=== PATIENT | female | born 1950 | race Caucasian/White ===

== ENCOUNTER 2019-07-21 09:14 | Emergency (ER) | payer OTHER ==
[~2019-07-21] VITALS: Ht 167.6 cm; Wt 76.2 kg
[2019-07-21] MEDS ORDERED: LOTREL 10-40 M1 EACH (09:27)
[2019-07-21] MEDS ORDERED: LANTUS SOL100 UNIT/1 (09:28)
[2019-07-21] MEDS ORDERED: HUMALOG KW100 UNIT/1 (09:28)
== END 2019-07-21 14:27 | disposition home or self-care (01) ==
LOC: ER 09:14
DX: M79.661 Pain in right lower leg (principal)

== ENCOUNTER 2023-02-01 06:34 | Day surgery (SDC) | payer OTHER ==
[~2023-02-01 06:34] MED LIST: HUMALOG KW100 UNIT/1; LANTUS SOL100 UNIT/1; LOTREL 10-40 M1 EACH
== END 2023-02-01 13:00 | disposition home or self-care (01) ==
LOC: AMB-ENDOS 06:34
PROVIDERS: ATTEND Colon & Rectal Surgery
DX: C18.7 Malignant neoplasm of sigmoid colon (principal); D12.4 Benign neoplasm of descending colon; D12.3 Benign neoplasm of transverse colon; K64.8 Other hemorrhoids; K92.1 Melena; Z20.822 Contact with and (suspected) exposure to COVID-19

== ENCOUNTER 2023-03-31 12:44 | Outpatient (CLI) | payer OTHER | END 2023-03-31 12:45 | disposition home or self-care (01) | LOC: LAB 12:44 | PROVIDERS: ATTEND Colon & Rectal Surgery | DX: C18.7 Malignant neoplasm of sigmoid colon (principal) ==

== ENCOUNTER 2023-04-06 07:09 | Outpatient (CLI) | payer OTHER | END 2023-04-06 07:25 | disposition home or self-care (01) | LOC: TOM 07:09 | PROVIDERS: ATTEND Colon & Rectal Surgery | DX: C18.7 Malignant neoplasm of sigmoid colon (principal) | CPT/HCPCS: 71260; 74177; Q9965 ==

== ENCOUNTER 2023-04-14 14:47 | Inpatient (IN) | payer OTHER ==
[~2023-04-14] VITALS: Ht 167.6 cm; Wt 76.2 kg
[2023-04-17] MEDS ORDERED: LANTUS (11:05)
[2023-04-17] MEDS ORDERED: LATANOPROST2.5 ML OP (11:06)
[2023-04-17] MEDS ORDERED: AMLODIPINE-OLM1 EAC3 PO (11:06)
[2023-04-17] MEDS ORDERED: SYNJARDY 5-5001 EACH PO (11:06)
[2023-04-21] MEDS ORDERED: AMLODIPINE-BEN1 EAC1 (16:32)
[2023-04-21] MEDS ORDERED: ATORVASTATIN CA40 MG (16:32)
== END 2023-04-24 11:54 | disposition home or self-care (01) | DRG 330 ==
LOC: O/R 04-21 05:52 → SURH 04-21 07:00
PROVIDERS: ADMIT Colon & Rectal Surgery; ATTEND Colon & Rectal Surgery
PROC: 0DBP4ZZ Excision of Rectum, Percutaneous Endoscopic Approach (ICD-10-PCS; 2023-04-21)
PROC: 07BC4ZZ Excision of Pelvis Lymphatic, Percutaneous Endoscopic Approach (ICD-10-PCS; 2023-04-21)
PROC: 0DNW4ZZ Release Peritoneum, Percutaneous Endoscopic Approach (ICD-10-PCS; 2023-04-21)
PROC: 0DJD8ZZ Inspection of Lower Intestinal Tract, Via Natural or Artificial Opening Endoscopic (ICD-10-PCS; 2023-04-21)
PROC: 0DTN4ZZ Resection of Sigmoid Colon, Percutaneous Endoscopic Approach (ICD-10-PCS; principal; 2023-04-21 07:00)
DX: C18.7 Malignant neoplasm of sigmoid colon (principal); K56.690 Other partial intestinal obstruction; R59.0 Localized enlarged lymph nodes; I11.9 Hypertensive heart disease without heart failure; N73.6 Female pelvic peritoneal adhesions (postinfective); N99.4 Postprocedural pelvic peritoneal adhesions; E11.9 Type 2 diabetes mellitus without complications

== ENCOUNTER 2024-04-03 06:30 | Day surgery (SDC) | payer OTHER ==
[~2024-04-03 06:30] MED LIST changes: +AMLODIPINE-BEN1 EAC1; +AMLODIPINE-OLM1 EAC3 PO; +ATORVASTATIN CA40 MG; +LANTUS; +LATANOPROST2.5 ML OP; +SYNJARDY 5-5001 EACH PO
[2024-04-03] MEDS ORDERED: fentaNYL CITRATE 50 MCG/ML AMPUL IV PUSH ONE (12:00)
[2024-04-03] MEDS ORDERED: ONDANSETRON HCL 2 MG/ML VIAL IV ONE (12:00)
[2024-04-03] MEDS ORDERED: MIDAZOLAM HCL 2 MG/2 ML VIAL IV ONE (12:00)
[2024-04-03] MEDS ORDERED: DIPHENHYDRAMINE HCL 50 MG/ML VIAL 1ML IV ONE (12:00)
== END 2024-04-03 13:00 | disposition home or self-care (01) ==
LOC: AMB-ENDOS 06:30 → CIR.AMB 14:15 → AMB-ENDOS 14:15
PROVIDERS: ATTEND Colon & Rectal Surgery
DX: K63.5 Polyp of colon (principal); K57.30 Diverticulosis of large intestine without perforation or abscess without bleeding; Z85.038 Personal history of other malignant neoplasm of large intestine

== ENCOUNTER 2025-07-02 06:00 | Day surgery (SDC) | payer OTHER ==
[2025-07-02] MEDS ORDERED: MIDAZOLAM HCL 2 MG/2 ML VIAL IV ONE (11:30)
[2025-07-02] MEDS ORDERED: DIPHENHYDRAMINE HCL 50 MG/ML VIAL 1ML IV ONE (11:30)
[2025-07-02] MEDS ORDERED: ONDANSETRON HCL 2 MG/ML VIAL IV ONE (11:30)
[2025-07-02] MEDS ORDERED: fentaNYL CITRATE 50 MCG/ML AMPUL IV PUSH ONE (11:30)
== END 2025-07-02 12:50 | disposition home or self-care (01) ==
LOC: AMB-ENDOS 06:00
PROVIDERS: ATTEND Colon & Rectal Surgery
DX: D12.2 Benign neoplasm of ascending colon (principal); D12.4 Benign neoplasm of descending colon; K63.5 Polyp of colon